=== PATIENT | female | born 1980 | race Caucasian/White ===

== ENCOUNTER 2020-10-20 17:57 | Emergency (ER) | payer MEDICAID ==
[~2020-10-20] VITALS: Ht 167.6 cm; Wt 59.0 kg
[2020-10-20] MEDS ORDERED: NEURONTIN 300M300 M2 PO (19:05)
[2020-10-20] MEDS ORDERED: LYRICA25 MG PO (19:06)
[2020-10-20] MEDS ORDERED: CELEXA 20 MG TA20 MG PO (19:06)
[2020-10-20] MEDS ORDERED: BACLOFEN5 MG PO (19:07)
[2020-10-20] MEDS ORDERED: TRAMADOL 50 MG50 MG PO (19:07)
== END 2020-10-20 19:52 ==
LOC: M.ERS 17:57
DX: Z02.89 Encounter for other administrative examinations (principal)